=== PATIENT | female | born 1990 | race Caucasian/White ===

== ENCOUNTER 2024-03-01 12:57 | Emergency (ER) | payer OTHER, SELFPAY ==
--- NOTE | 2024-03-01 13:01 | ED.SKABFB ---
HPI - Skin/Abscess/Foreign Bdy General Chief complaint: Wound/Laceration Stated complaint: cat scratch Time Seen by Provider: 03/01/24 13:01 Source: patient Mode of arrival: ambulatory Limitations: no limitations History of Present Illness HPI narrative: Sulema is a 33-year-old female patient presenting to clinic today with complaints of a cat scratch to her left wrist. She reports this occured around 1030 today. States a stray cat was hit by a car and they were trying to help it and the cat scratches her left wrist. Tetanus Unk. Patient is a type 1 diabetic and has an insulin pump. Related Data Home Medications Medication Instructions Recorded Confirmed insulin aspart U-100 100 unit/mL See Rx Instructions .Route .COMPLEX 03/01/24 03/01/24 subcutaneous solution levothyroxine 125 mcg tablet 125 mcg PO DAILY 03/01/24 03/01/24 Allergies Allergy/AdvReac Type Severity Reaction Status Date / Time Penicillins Allergy Severe Swelling Verified 03/01/24 13:28 of Lip/Tongue/Throat Review of Systems Review of Systems: Pertinent positives per HPI. Patient denies any fever, chills, rash, headache, visual changes, dizziness, cough, runny nose, sore throat, shortness of breath, chest pain, palpitations, nausea, vomiting, diarrhea, constipation, abdominal pain, or any urinary issues. PMFSH Comments At the time of my signature, I reviewed and agree with the nursing past medical, surgical, social, and family history. There is no relevant family history pertinent to the patient complaint. Exam Narrative: General: Well-developed, well nourished, in no apparent distress Head: Normocephalic, atraumatic. Cardio: Regular rate and rhythm, s1 and s2 normal, no murmur appreciated. Resp: Clear to auscultation bilaterally, no rhonchi, rales, wheezing or rubs. Integumentary: [place], warm, and dry, intact without lesion, 1.75 cm superficial scratch to the left ulnar lateral wrist Course Course Emergency Course: Portions of this record may have been created with voice recognition software. Level of Care: Express Care Visit Vital Signs Vital signs: Vital Signs Temperature 36.7 C 03/01/24 13:18 Pulse Rate 91 03/01/24 13:18 Respiratory Rate 16 03/01/24 13:18 Blood Pressure 145/88 H 03/01/24 13:18 Pulse Oximetry 100 03/01/24 13:18 Oxygen Delivery Room Air 03/01/24 13:18 Temperature 36.7 C 03/01/24 13:18 Pulse Rate 91 03/01/24 13:18 Respiratory Rate 16 03/01/24 13:18 Blood Pressure 145/88 H 03/01/24 13:18 Pulse Oximetry 100 03/01/24 13:18 Oxygen Delivery Room Air 03/01/24 13:18 Vital signs reviewed MDM - Skin/Abscess/Foreign Bdy MDM Narrative Medical decision making narrative: At the time of visit patient is resting comfortably on the exam table. Patient appears to be nontoxic. Plan: Will place the patient on azithromycin to cover for cat scratch disease. Tetanus shot was given in the clinic today. Supportive measures were discussed with the patient and they voiced understanding discharge instructions and agrees to treatment plan. Return precautions reviewed Differential Diagnosis Differential diagnosis: Likely abscess of skin or subcutaneous tissue, cellulitis and other (Cat scratch) Discharge Plan Discharge Clinical Impression: Cat scratch of right wrist Qualifiers: Encounter type: initial encounter Qualified Code(s): S60.811A - Abrasion of right wrist, initial encounter Patient Disposition: Home, Self-Care Condition: Stable Instructions: Antibiotic Form, Cat Scratch Disease (ED) Additional Instructions: Keep would clean and dry Wash wound daily with soap and water Take azithromycin as prescribed May apply triple antibiotic ointment to the wound twice daily times 48 hours then leave open air Watch for signs and symptoms of infection-fever, redness, swelling, increase in pain, purulent discharge, or streaking Prescriptions: Heber harvey
[2024-03-01 13:18] VITALS: BP 145/88; PULSE 91; RESP 16; TEMP 36.7; O2SAT 100
[2024-03-01] MEDS: TETANUS,DIPHTHERIA,AC PERTUSSIS ADULT (0.5 ML) BOOSTRIX IM (13:34)
== END 2024-03-01 13:43 | disposition home or self-care (01) ==
PROVIDERS: Emergency Provider Nurse Practitioner Family
DX: S60.811A Abrasion of right wrist, initial encounter (principal); W55.03XA Scratched by cat, initial encounter; Z23 Encounter for immunization; E10.9 Type 1 diabetes mellitus without complications; Z96.41 Presence of insulin pump (external) (internal); E89.0 Postprocedural hypothyroidism
CPT/HCPCS: 90471; 90715; 99213; G0463